=== PATIENT | female | born 1960 | race Caucasian/White ===

== ENCOUNTER 2018-07-02 08:01 | Emergency (ER) | payer MEDICAID ==
[~2018-07-02] VITALS: Ht 157.5 cm; Wt 95.7 kg
[2018-07-02 08:17] VITALS: BP 144/74
--- NOTE | 2018-07-02 08:23 | NUR ---
Patient ambulated to bed 9. RN evaluating patient at bedside.
--- NOTE | 2018-07-02 08:35 | NUR ---
PT. ARRIVED TO THE ED W/ c/o left knee pain x 5 days----worsening pain, ambulates with a slight limp denies recent injury. PT STATES " WHEN IT GETS COLD,IT STARTS HURTING A LOT AND IT HAS BEEN FOR THE PAST 5 DAYS". 8/10 DULL THROBBING PAIN ON LT KNEE THAT IS NON RADIATING". ER MD AWARE. SAFETY PRECAUTIONS IMPLEMENTED. WILL CONTINUE TO MONITOR.
--- NOTE | 2018-07-02 08:50 | NUR ---
Dr. Pack evaluating patient at bedside.
[2018-07-02] MEDS ORDERED: traMADol 50 MG TAB PO ONE (08:55)
[2018-07-02] MEDS ORDERED: KETOROLAC 60 MG/2 ML VIAL IM ONE (08:55)
[2018-07-02 10:05] VITALS: BP 140/72
--- NOTE | 2018-07-02 10:05 | NUR ---
Patient discharged with v/s stable. Written and verbal after care instructions given and explained. Patient alert, oriented and verbalized understanding of instructions. Ambulatory with steady gait. All questions addressed prior to discharge. ID band removed. Patient advised to follow up with PMD. Rx of voltaren xr 100mg given. Patient educated on indication of medication including possible reaction and side effects. Opportunity to ask questions provided and answered.
== END 2018-07-02 10:05 | disposition home or self-care (01) ==
LOC: MED 08:01
DX: M17.12 Unilateral primary osteoarthritis, left knee (principal); E11.9 Type 2 diabetes mellitus without complications; I10 Essential (primary) hypertension
CPT/HCPCS: 96372; 99283; J1885

== ENCOUNTER 2018-07-19 17:53 | Emergency (ER) | payer MEDICAID ==
[~2018-07-19] VITALS: Ht 162.6 cm; Wt 98.2 kg
[2018-07-19 18:07] VITALS: BP 109/70
--- NOTE | 2018-07-19 18:13 | NUR ---
PT AMBULATED TO ER BED 11
[2018-07-19 18:17] VITALS: BP 138/76
[2018-07-19] MEDS ORDERED: ASPIRIN 81 MG TAB.CHEW PO ONE (18:20)
--- NOTE | 2018-07-19 18:40 | NUR ---
43 YO F BIB SELF W/ C/ RIGHT LEG PAIN W/ "MESQUINO?", WART?. PT HAS A BLISTER ON THE RIGHT UPPER THIGH THAT APPEARS ERYTHEMOUS W/ EDEMA AND POSS PUS. PT REPORTS FEELING VERY HOT, DENIES FEVERS/N/V/D. DENIES A BURN OR INJUIRY. / LEG PAIN.
[2018-07-19 18:51] LABS: BASOPHILS % (AUTO) 0.1 % (0.0-2.0); EOSINOPHILS # (AUTO) 0.1 K/uL (0-0.4); EOSINOPHILS % (AUTO) 1.1 % (0.0-4.0); HEMATOCRIT 38.4 % (36-48); HEMOGLOBIN 12.5 g/dL (12.0-16.0); LYMPHOCYTES # (AUTO) 1.7 K/uL (2.5-16.5); LYMPHOCYTES % (AUTO) 14.3 % (20.5-51.1); MEAN CORPUSCULAR HEMOGLOBIN 30 pg (27-31); MEAN CORPUSCULAR HGB CONC 32 g/dL (33-37); MEAN CORPUSCULAR VOLUME 93.2 fL (80-94); MONOCYTES # (AUTO) 0.8 K/uL (0.8-1.0); MONOCYTES % (AUTO) 6.6 % (1.7-9.3); NEUTROPHILS # (AUTO) 9.3 K/uL (1.8-7.7); NEUTROPHILS % (AUTO) 77.9 % (42.2-75.2); PLATELET COUNT (AUTO) 407 K/uL (140-450); RED BLOOD CELL COUNT(AUTO) 4.13 MIL/uL (4.20-5.40); RED CELL DISTRIBUTION WIDTH 13.4 % (11.6-13.7)
[2018-07-19 19:04] LABS: ANION GAP 14.7 (8-16); CARBON DIOXIDE 28.4 mmol/L (21-32); CREATININE 0.7 mg/dL (0.6-1.3); POTASSIUM 4.1 mmol/L (3.5-5.1)
[2018-07-19 19:10] LABS: ALBUMIN 3.7 g/dL (3.4-5.0); TOTAL BILIRUBIN 0.5 mg/dL (0.0-1.0)
--- NOTE | 2018-07-19 19:11 | NUR ---
REPORT RECEIVED FROM RENEE FONTANEZ
[2018-07-19 19:18] LABS: PROTHROMBIN TIME 9.4 secs (10.8-13.4)
--- NOTE | 2018-07-19 19:23 | NUR ---
Dr. Orozco evaluating patient at bedside.
--- NOTE | 2018-07-19 19:30 | NUR ---
PT SITTING IN BED. C/O CELLULITIS ON RT THIGH. INFORMED PT THAT DR HATCH WILL BE IN TO SEE HER SHORTLY.
[2018-07-19] MEDS ORDERED: CLINDAMYCIN 600 MG in DEXTROSE 5% 50 ML IV ONE (19:55)
[2018-07-19] MEDS ORDERED: NACL 0.9% 1,000 ML IV ONE (19:55)
[2018-07-19] MEDS ORDERED: KETOROLAC 30 MG/ML VIAL IVP ONE (19:55)
[2018-07-19] MEDS ORDERED: LIDOCAINE/EPI 1% 1:100000 20 ML VIAL INJ ONE (20:00)
[2018-07-19] MEDS ORDERED: CLINDAMYCIN 600 MG/4 ML VIAL ONE (20:12)
--- NOTE | 2018-07-19 20:35 | NUR ---
I&D Procedure done by Dr Holden HATCH. SM amt of bleeding noted. DSD applied. Pt procedure. Wound care discussed w/ patient.
[2018-07-19] MEDS ORDERED: BACITRACIN OINT 500 UNITS/GM PKT TP ONE (20:50)
--- NOTE | 2018-07-19 21:25 | NUR ---
Patient discharged with v/s stable. Written and verbal after care instructions given and explained. Patient alert, oriented and verbalized understanding of instructions. Ambulatory with steady gait. All questions addressed prior to discharge. ID band removed. Patient advised to follow up with PMD. Rx of BACTRIM AND NAPROSYN given. Patient educated on indication of medication including possible reaction and side effects. Opportunity to ask questions provided and answered.
[2018-07-19 21:26] VITALS: BP 133/67
== END 2018-07-19 21:25 | disposition home or self-care (01) ==
LOC: MED 17:53
DX: L03.115 Cellulitis of right lower limb (principal); E11.9 Type 2 diabetes mellitus without complications; I10 Essential (primary) hypertension; Z90.49 Acquired absence of other specified parts of digestive tract; W57.XXXA Bitten or stung by nonvenomous insect and other nonvenomous arthropods, initial encounter; Y93.89 Activity, other specified; Y92.89 Other specified places as the place of occurrence of the external cause; Y99.8 Other external cause status
CPT/HCPCS: 10060; 36415; 80053; 83880; 84484; 85025; 85610; 85730; 90471; 90715; 96361; 96365; 96375; 99283; J1885; J2001; J3490; J7030; J7060

== ENCOUNTER 2018-10-08 00:59 | Emergency (ER) | payer MEDICAID ==
[~2018-10-08] VITALS: Ht 165.1 cm; Wt 117.9 kg
[2018-10-08 01:07] VITALS: BP 141/75
--- NOTE | 2018-10-08 01:07 | NUR ---
TO BED # 09 AMBULATORY, REPORT GIVEN TO GINA DURAN
[2018-10-08] MEDS ORDERED: IBUPROFEN 800 MG TAB PO ONE (01:10)
--- NOTE | 2018-10-08 01:12 | NUR ---
PT CAME INTO THE ER WITH C/O FEVER X 2 DAYS. PT TEMP WAS 101.5, IBUPROFIN GIVEN. A/O X 4, PT REPORTS NAUSEA AND VOMITED X 2. PT HAS GENERALIZED PAIN, ACHE, 7/10. LUNGS AT CLEAR TO AUSCULTATION, NO SOB, SAT 97%. PRODUCTIVE COUGH PRESENT. ER MD AT BEDSIDE. SAFETY PRECAUTIONS IN PLACE.
[2018-10-08] MEDS ORDERED: KETOROLAC 60 MG/2 ML VIAL IM ONE (01:20)
--- NOTE | 2018-10-08 02:39 | NUR ---
PATIENT COUGHING. VOMITED X1. PATIENT RESTING IN BED. WILL CONTINUE TO MONITOR.
--- NOTE | 2018-10-08 02:57 | NUR ---
PT VOMITED X 1, ER MD MADE AWARE, WAITING FOR ORDERS.
[2018-10-08] MEDS ORDERED: ONDANSETRON 4 MG/2 ML VIAL IM ONE (03:00)
[2018-10-08 03:36] VITALS: BP 125/77
--- NOTE | 2018-10-08 03:36 | NUR ---
Patient discharged with v/s stable. Written and verbal after care instructions given and explained. Patient alert, oriented and verbalized understanding of instructions. Ambulatory with steady gait. All questions addressed prior to discharge. ID band removed. Patient advised to follow up with PMD. Rx of PROMETHAZINE HYDROCHLORIDE/ DEXTROMETHORPHAN HYDROBROMIDE, MOTRIN given. Patient educated on indication of medication including possible reaction and side effects. Opportunity to ask questions provided and answered.
== END 2018-10-08 03:36 | disposition home or self-care (01) ==
LOC: MED 00:59
DX: J06.9 Acute upper respiratory infection, unspecified (principal); E11.9 Type 2 diabetes mellitus without complications; I10 Essential (primary) hypertension; M54.9 Dorsalgia, unspecified; M54.2 Cervicalgia
CPT/HCPCS: 87804; 96372; 99283; J1885; J2405

== ENCOUNTER 2018-10-08 21:26 | Emergency (ER) | payer MEDICAID ==
[~2018-10-08] VITALS: Ht 154.9 cm; Wt 98.9 kg
[2018-10-08 21:42] VITALS: BP 122/60
--- NOTE | 2018-10-08 21:45 | NUR ---
TO LOBBY A/W BED, AMB, THRAOT SWAB DONE AND SENT TO LAB ERMD NOTED
--- NOTE | 2018-10-08 22:10 | NUR ---
PT CAME IN WITH C/O FEVER. PT STATED THAT SHE WAS HERE THE NIGHT BEFORE AND GOT A RX BUT IT WAS NOT FILLED BY HER PERSONAL PHARMACY BECAUSE THEY WERE OUT OF STOCK.PT HAS A COUGH, LS CLEAR WITH DIMINISHED BASES BILATERAL, SATING 96%, COUGH PRESENT, TEMP OF 100.1 F. ER MD AWARE, PT WAITING TO BE EVALUATED. SAFETY PRECAUTIONS IN PLACE, WILL CONTINUE TO MONITOR.
[2018-10-09 00:05] VITALS: BP 124/64
[2018-10-09] MEDS ORDERED: KETOROLAC 60 MG/2 ML VIAL IM ONE (00:05)
--- NOTE | 2018-10-09 00:05 | NUR ---
Patient discharged with v/s stable. Written and verbal after care instructions given and explained. Patient alert, oriented and verbalized understanding of instructions. Ambulatory with steady gait. All questions addressed prior to discharge. ID band removed. Patient advised to follow up with PMD. Rx of NAPROSYN AND ROBITUSSIN DM given. Patient educated on indication of medication including possible reaction and side effects. Opportunity to ask questions provided and answered.
== END 2018-10-09 00:05 | disposition home or self-care (01) ==
LOC: MED 21:26
DX: J06.9 Acute upper respiratory infection, unspecified (principal); H57.13 Ocular pain, bilateral; E11.9 Type 2 diabetes mellitus without complications; I10 Essential (primary) hypertension
CPT/HCPCS: 87081; 99282; 99283

== ENCOUNTER 2019-03-06 21:06 | Emergency (ER) | payer MEDICAID ==
[~2019-03-06] VITALS: Ht 157.5 cm; Wt 97.1 kg
[2019-03-06 21:09] VITALS: BP 146/82
[2019-03-06] MEDS ORDERED: NACL 0.9% 1,000 ML IV ONE (22:45)
[2019-03-06] MEDS ORDERED: ASPIRIN 81 MG TAB.CHEW PO ONE (22:45)
[2019-03-06] MEDS ORDERED: ALUMINUM HYD/MAG/SIMETHICONE 30 ML UDC PO ONE (23:20)
[2019-03-06] MEDS ORDERED: PANTOPRAZOLE 40 MG INJ VIAL IVP ONE (23:20)
[2019-03-06] MEDS ORDERED: DICYCLOMINE HCL LIQUID 10 MG/5 ML UDC PO ONE (23:20)
[2019-03-06] MEDS ORDERED: LIDOCAINE VISCOUS 2% 20 ML UDC PO ONE (23:20)
[2019-03-06 23:48] LABS: BASOPHILS % (AUTO) 0.3 % (0.0-2.0); EOSINOPHILS # (AUTO) 0.2 K/uL (0-0.4); EOSINOPHILS % (AUTO) 2.3 % (0.0-4.0); HEMATOCRIT 39.4 % (36-48); HEMOGLOBIN 13.2 g/dL (12.0-16.0); LYMPHOCYTES # (AUTO) 3.3 K/uL (2.5-16.5); LYMPHOCYTES % (AUTO) 35.2 % (20.5-51.1); MEAN CORPUSCULAR HEMOGLOBIN 31 pg (27-31); MEAN CORPUSCULAR HGB CONC 34 g/dL (33-37); MEAN CORPUSCULAR VOLUME 93.3 fL (80-94); MONOCYTES # (AUTO) 0.7 K/uL (0.8-1.0); MONOCYTES % (AUTO) 7.8 % (1.7-9.3); NEUTROPHILS # (AUTO) 5.1 K/uL (1.8-7.7); NEUTROPHILS % (AUTO) 54.4 % (42.2-75.2); PLATELET COUNT (AUTO) 420 K/uL (140-450); RED BLOOD CELL COUNT(AUTO) 4.22 MIL/uL (4.20-5.40); RED CELL DISTRIBUTION WIDTH 13.2 % (11.6-13.7); WHITE BLOOD COUNT (AUTO) 9.4 K/uL (4.8-10.8)
[2019-03-07 00:01] LABS: ANION GAP 14.5 (8-16); CARBON DIOXIDE 27.2 mmol/L (21-32); CREATININE 0.8 mg/dL (0.6-1.3); POTASSIUM 3.7 mmol/L (3.5-5.1)
[2019-03-07 00:04] LABS: ALBUMIN 3.9 g/dL (3.4-5.0); TOTAL BILIRUBIN 0.4 mg/dL (0.0-1.0)
[2019-03-07 00:25] VITALS: BP 146/82
== END 2019-03-07 00:25 | disposition left against medical advice (07) ==
LOC: MED 21:06
DX: R07.89 Other chest pain (principal); R10.13 Epigastric pain; R42 Dizziness and giddiness; E11.9 Type 2 diabetes mellitus without complications; I10 Essential (primary) hypertension
CPT/HCPCS: 36415; 71045; 80053; 84484; 85025; 99284; Q0092

== ENCOUNTER 2019-09-11 09:50 | Emergency (ER) | payer MEDICAID ==
[~2019-09-11] VITALS: Ht 156.2 cm; Wt 97.5 kg
[2019-09-11 09:53] VITALS: BP 123/60
--- NOTE | 2019-09-11 10:00 | NUR ---
amb to bed 06
--- NOTE | 2019-09-11 10:10 | NUR ---
59 Y/O F C/C COUGH/SORE THROAT/GREEN PHLEGM X 2 WEEKS. PER PT HAS NOT TAKEN RX AT HOME. LUNG SOUNDS CLEAR. PT A/OX4. ALLERGIES POLLEN. HX DM. RX GLUCOPHAGE. NO N/V/D. SIDE RAIL X1.
--- NOTE | 2019-09-11 10:36 | NUR ---
PT RESTING IN BED, SIDE RAIL X1
[2019-09-11 10:38] LABS: BASOPHILS % (AUTO) 1.1 % (0.0-2.0); EOSINOPHILS # (AUTO) 0.3 K/uL (0-0.4); EOSINOPHILS % (AUTO) 6.2 % (0.0-4.0); HEMATOCRIT 38.4 % (36-48); HEMOGLOBIN 12.6 g/dL (12.0-16.0); LYMPHOCYTES # (AUTO) 0.8 K/uL (2.5-16.5); LYMPHOCYTES % (AUTO) 19.3 % (20.5-51.1); MEAN CORPUSCULAR HEMOGLOBIN 31 pg (27-31); MEAN CORPUSCULAR HGB CONC 33 g/dL (33-37); MONOCYTES # (AUTO) 0.4 K/uL (0.8-1.0); MONOCYTES % (AUTO) 10.9 % (1.7-9.3); NEUTROPHILS # (AUTO) 2.5 K/uL (1.8-7.7); NEUTROPHILS % (AUTO) 62.5 % (42.2-75.2); PLATELET COUNT (AUTO) 344 K/uL (140-450); RED BLOOD CELL COUNT(AUTO) 4.04 MIL/uL (4.20-5.40); RED CELL DISTRIBUTION WIDTH 14.2 % (11.6-13.7)
--- NOTE | 2019-09-11 10:43 | NUR ---
XRAY AT BEDSIDE
--- NOTE | 2019-09-11 10:50 | NUR ---
Dr. Matta is evaluating the patient at bedside.
[2019-09-11 11:09] LABS: ALBUMIN 3.5 g/dL (3.4-5.0); CARBON DIOXIDE 32.1 mmol/L (21-32); CREATININE 0.8 mg/dL (0.6-1.3); POTASSIUM 4.1 mmol/L (3.5-5.1); TOTAL BILIRUBIN 0.5 mg/dL (0.0-1.0)
--- NOTE | 2019-09-11 11:52 | NUR ---
PT RESTING IN BED, SIDE RAIL X1
[2019-09-11 12:07] VITALS: BP 120/62
--- NOTE | 2019-09-11 12:07 | NUR ---
Patient discharged with v/s stable. Written and verbal after care instructions given and explained. Patient alert, oriented and verbalized understanding of instructions. Ambulatory with steady gait. All questions addressed prior to discharge. ID band removed. Patient advised to follow up with PMD. Rx of ALBUTEROL,TESSALON,CODEINE given. Patient educated on indication of medication including possible reaction and side effects. Opportunity to ask questions provided and answered.
== END 2019-09-11 12:07 | disposition home or self-care (01) ==
LOC: MED 09:50
DX: R05 Cough (principal); R51 Headache; M54.2 Cervicalgia; I10 Essential (primary) hypertension
CPT/HCPCS: 36415; 71045; 80053; 85025; 99284; Q0092

== ENCOUNTER 2020-01-31 13:49 | Emergency (ER) | payer MEDICAID ==
[~2020-01-31] VITALS: Ht 157.5 cm; Wt 95.3 kg
[2020-01-31 13:54] VITALS: BP 141/83
--- NOTE | 2020-01-31 14:10 | NUR ---
Pt c/o rt foot pain x 2 wks, unable to state if trauma/injury occured, states "i want an xray" PATIENT'S RT DORSAL FOOT IS ERYTHEMATOUS, WARM AND TENDER TO TOUCH WITH FULL ROM. PT DENIES ANY FEVER, CP, SOB, OR COUGH AT THIS TIME; PATIENT STATES PAIN OF 10/10 AT THIS TIME; VSS; PATIENT POSITIONED FOR COMFORT; HOB ELEVATED; BEDRAILS UP X1; BED DOWN. ER MD MADE AWARE OF PT STATUS.
--- NOTE | 2020-01-31 14:26 | NUR ---
RAD AT BEDSIDE
--- NOTE | 2020-01-31 14:27 | NUR ---
ER-PA AT BEDSIDE
[2020-01-31] MEDS: IBUPROFEN 600 MG TAB PO ONE (14:32)
[2020-01-31 15:35] VITALS: BP 130/72
--- NOTE | 2020-01-31 15:36 | NUR ---
Patient discharged with v/s stable. Written and verbal after care instructions given and explained. Patient alert, oriented and verbalized understanding of instructions. Ambulatory with steady gait. All questions addressed prior to discharge. ID band removed. Patient advised to follow up with PMD. Rx of IBUPROFEN,NORCO given. Patient educated on indication of medication including possible reaction and side effects. Opportunity to ask questions provided and answered.
== END 2020-01-31 15:36 | disposition home or self-care (01) ==
LOC: MED 13:49
DX: S92.351A Displaced fracture of fifth metatarsal bone, right foot, initial encounter for closed fracture (principal); I10 Essential (primary) hypertension; W22.03XA Walked into furniture, initial encounter; Y93.89 Activity, other specified; Y92.098 Other place in other non-institutional residence as the place of occurrence of the external cause; Y99.8 Other external cause status
CPT/HCPCS: 29515; 73630; 99283; Q0092

== ENCOUNTER 2020-04-15 13:58 | Emergency (ER) | payer MEDICAID ==
[~2020-04-15] VITALS: Ht 157.5 cm; Wt 96.6 kg
[2020-04-15 14:02] VITALS: BP 131/68
--- NOTE | 2020-04-15 14:18 | NUR ---
PT C/O WORSENING CHEST TIGHTNESS, MID BACK PAIN, AND WHEEZINGS, MILD DRY COUGH FOR ONE MONTH. DENIES N/V/D. PT AOX4 , AFIBRILE , AMBULATORY WITH STEADY GAIT, PINK PALPEBRAL CONJUNCTIVA , ANICTERIC SCLERA , SCE , ROUND SOFT ABDOMEN. PMH: PRE-DIABETES, ASTHMA
--- NOTE | 2020-04-15 14:23 | NUR ---
DR SHABAZZ AT BEDSIDE EVALUATING PT.
[2020-04-15] MEDS ORDERED: ALBUTEROL HFA MDI 90 MCG/ACTUATION 8 GM INH ONE (14:30)
[2020-04-15] MEDS ORDERED: predniSONE 20 MG TAB PO ONE (14:30)
--- NOTE | 2020-04-15 14:34 | NUR ---
EMT AT BEDSIDE DOIN EKG
--- NOTE | 2020-04-15 14:35 | NUR ---
RT AT BEDSIDE.
--- NOTE | 2020-04-15 14:44 | NUR ---
COVID PCR DONE SENT TO LAB .
--- NOTE | 2020-04-15 14:58 | NUR ---
XRAY AT BEDSIDE.
[2020-04-15 15:12] LABS: BASOPHILS % (AUTO) 0.4 % (0.0-2.0); EOSINOPHILS # (AUTO) 0.2 K/uL (0-0.4); EOSINOPHILS % (AUTO) 3.2 % (0.0-4.0); HEMATOCRIT 35.5 % (36-48); HEMOGLOBIN 12.1 g/dL (12.0-16.0); LYMPHOCYTES # (AUTO) 1.6 K/uL (2.5-16.5); LYMPHOCYTES % (AUTO) 26.6 % (20.5-51.1); MEAN CORPUSCULAR HEMOGLOBIN 32 pg (27-31); MEAN CORPUSCULAR HGB CONC 34 g/dL (33-37); MEAN CORPUSCULAR VOLUME 93.6 fL (80-94); MONOCYTES # (AUTO) 0.5 K/uL (0.8-1.0); MONOCYTES % (AUTO) 7.8 % (1.7-9.3); NEUTROPHILS # (AUTO) 3.7 K/uL (1.8-7.7); PLATELET COUNT (AUTO) 386 K/uL (140-450); RED CELL DISTRIBUTION WIDTH 13.7 % (11.6-13.7)
[2020-04-15 15:34] LABS: ALBUMIN 3.4 g/dL (3.4-5.0); ANION GAP 11.7 (8-16); CARBON DIOXIDE 29.1 mmol/L (21-32); CREATININE 0.8 mg/dL (0.6-1.3); POTASSIUM 3.8 mmol/L (3.5-5.1); TOTAL BILIRUBIN 0.3 mg/dL (0.0-1.0)
[2020-04-15] MEDS ORDERED: IBUPROFEN 600 MG TAB PO ONE (15:50)
--- NOTE | 2020-04-15 16:06 | NUR ---
dr norman at bedside reevaluating pt.
[2020-04-15 16:47] VITALS: BP 145/50
--- NOTE | 2020-04-15 16:48 | NUR ---
DISCHARGE WITHOUT DISCHARGE NOTES , PATIENT WALK OUT DR SHABAZZ AND RENEE ABREU INFORMED AND AWARE.
--- NOTE | 2020-04-17 08:39 | NUR ---
Received negative covid results from lab.
== END 2020-04-15 16:48 | disposition home or self-care (01) ==
LOC: MED 13:58
DX: J20.9 Acute bronchitis, unspecified (principal); R73.03 Prediabetes; I10 Essential (primary) hypertension; J45.909 Unspecified asthma, uncomplicated; Z20.828 Contact with and (suspected) exposure to other viral communicable diseases
CPT/HCPCS: 71045; 80053; 84484; 85025; 93005; 94664; 99285; J7512; Q0092; U0003

== ENCOUNTER 2021-02-09 08:24 | Emergency (ER) | payer MEDICAID, SELFPAY ==
[~2021-02-09] VITALS: Ht 165.1 cm; Wt 104.3 kg
[2021-02-09 08:46] VITALS: BP 200/97
[2021-02-09] MEDS ORDERED: BENZONATATE 100 MG CAPLF PO SCH (09:20)
[2021-02-09] MEDS ORDERED: PROCHLORPERAZINE 10 MG/2 ML VIAL IM ONE (09:20)
[2021-02-09] MEDS ORDERED: KETOROLAC 60 MG/2 ML VIAL IM ONE ×2 (09:20→10:33)
[2021-02-09] MEDS ORDERED: CLONIDINE HYDROCHLORIDE 0.1 MG TAB PO ONE (09:20)
--- NOTE | 2021-02-09 09:25 | NUR ---
COVID SWAB DONE.
[2021-02-09 10:32] LABS: BASOPHILS % (AUTO) 0.2 % (0.0-2.0); EOSINOPHILS # (AUTO) 0.4 K/uL (0-0.4); HEMATOCRIT 40.4 % (36-48); HEMOGLOBIN 13.4 g/dL (12.0-16.0); LYMPHOCYTES # (AUTO) 1.1 K/uL (2.5-16.5); LYMPHOCYTES % (AUTO) 14.2 % (20.5-51.1); MEAN CORPUSCULAR HEMOGLOBIN 32 pg (27-31); MEAN CORPUSCULAR HGB CONC 33 g/dL (33-37); MEAN CORPUSCULAR VOLUME 95.4 fL (80-94); MONOCYTES # (AUTO) 0.6 K/uL (0.8-1.0); MONOCYTES % (AUTO) 7.5 % (1.7-9.3); NEUTROPHILS # (AUTO) 5.9 K/uL (1.8-7.7); NEUTROPHILS % (AUTO) 73.1 % (42.2-75.2); PLATELET COUNT (AUTO) 419 K/uL (140-450); RED BLOOD CELL COUNT(AUTO) 4.23 MIL/uL (4.20-5.40); RED CELL DISTRIBUTION WIDTH 13.4 % (11.6-13.7)
[2021-02-09] MEDS ORDERED: PROCHLORPERAZINE 5 MG TAB ONE (10:32)
[2021-02-09] MEDS ORDERED: CLONIDINE HYDROCHLORIDE 0.1 MG TAB ONE (10:34)
[2021-02-09] MEDS ORDERED: PROCHLORPERAZINE 10 MG/2 ML VIAL ONE (10:38)
[2021-02-09 10:42] LABS: ANION GAP 7.9 (8-16); CARBON DIOXIDE 30.4 mmol/L (21-32); CREATININE 0.7 mg/dL (0.6-1.3); POTASSIUM 4.3 mmol/L (3.5-5.1)
[2021-02-09] MEDS ORDERED: PRED20TA6 PO (11:51)
[2021-02-09] MEDS ORDERED: AZIT250T4 PO (11:51)
[2021-02-09] MEDS ORDERED: NAPR-54 PO (11:51)
--- NOTE | 2021-02-09 14:23 | NUR ---
NOVEL WAS SWABBED AND SENT TO LAB
--- NOTE | 2021-02-09 14:36 | NUR ---
Patient discharged with v/s stable. Written and verbal after care instructions given and explained. Patient alert, oriented and verbalized understanding of instructions. Ambulatory with steady gait. All questions addressed prior to discharge. ID band removed. Patient advised to follow up with PMD. Rx of AZITHROMYCIN, NAPROXEN, PREDNISONE given. Patient educated on indication of medication including possible reaction and side effects. Opportunity to ask questions provided and answered.
[2021-02-09 14:37] VITALS: BP 151/91
== END 2021-02-09 14:36 | disposition home or self-care (01) ==
LOC: MED 08:24
DX: S00.93XA Contusion of unspecified part of head, initial encounter (principal); J20.9 Acute bronchitis, unspecified; I10 Essential (primary) hypertension; E11.9 Type 2 diabetes mellitus without complications; J45.909 Unspecified asthma, uncomplicated; Z20.822 Contact with and (suspected) exposure to COVID-19; X58.XXXA Exposure to other specified factors, initial encounter; Y93.89 Activity, other specified; Y92.89 Other specified places as the place of occurrence of the external cause; Y99.8 Other external cause status
CPT/HCPCS: 71045; 80048; 85025; 87426; 96372; 99284; J0780; J1885; Q0163; U0003; Q0164

== ENCOUNTER 2021-09-24 09:41 | Inpatient (IN) | payer MEDICAID, SELFPAY ==
[~2021-09-24] VITALS: Ht 157.5 cm; Wt 96.6 kg
[~2021-09-24 09:41] MED LIST: AZIT250T4 PO; NAPR-54 PO; PRED20TA6 PO
[2021-09-24 09:52] VITALS: BP 156/80
--- NOTE | 2021-09-24 09:57 | NUR ---
PT AMBULATED TO ER BED 9 WITH A STEADY GAIT.
--- NOTE | 2021-09-24 10:07 | NUR ---
61 y/o female c/o rectal bleeding x2 weeks. Patient states "blood is bright red and only appears after a bowel movement." Patient has a 8/10 pain level. Patient states "her pain is all throught out my intestine." Patient had hemorrhoidectomy 5 years ago but states "they left a small hemmoroid." Patient is complaining of weakness also. Medical History: HEMORRHOIDS, PRE-DM NKDA
--- NOTE | 2021-09-24 10:17 | NUR ---
Dr. Fields at bedside evaluating patient.
--- NOTE | 2021-09-24 10:21 | NUR ---
PT TAKEN TO CT VIA RCHALINO.
--- NOTE | 2021-09-24 10:38 | NUR ---
PT TAKEN TO ER BED 9 VIA [facility]ALINO.
[2021-09-24 10:48] LABS: BASOPHILS % (AUTO) 0.7 % (0.0-2.0); EOSINOPHILS # (AUTO) 0.3 K/uL (0-0.4); HEMATOCRIT 35.7 % (36-48); HEMOGLOBIN 11.9 g/dL (12.0-16.0); LYMPHOCYTES # (AUTO) 1.3 K/uL (2.5-16.5); LYMPHOCYTES % (AUTO) 23.9 % (20.5-51.1); MEAN CORPUSCULAR HEMOGLOBIN 31 pg (27-31); MEAN CORPUSCULAR HGB CONC 33 g/dL (33-37); MONOCYTES # (AUTO) 0.5 K/uL (0.8-1.0); MONOCYTES % (AUTO) 8.4 % (1.7-9.3); NEUTROPHILS # (AUTO) 3.4 K/uL (1.8-7.7); PLATELET COUNT (AUTO) 381 K/uL (140-450); RED CELL DISTRIBUTION WIDTH 13.5 % (11.6-13.7); WHITE BLOOD COUNT (AUTO) 5.6 K/uL (4.8-10.8)
[2021-09-24 10:55] LABS: ALBUMIN 3.3 g/dL (3.4-5.0); ANION GAP 11.9 (8-16); CARBON DIOXIDE 29.2 mmol/L (21-32); CREATININE 0.7 mg/dL (0.6-1.3); POTASSIUM 4.1 mmol/L (3.5-5.1); TOTAL BILIRUBIN 0.6 mg/dL (0.0-1.0)
[2021-09-24] MEDS ORDERED: PANTOPRAZOLE 40 MG INJ VIAL IVP ONE (12:15)
[2021-09-24] MEDS ORDERED: DEXT 5% / NACL 0.9% 500 ML IV ONE (12:15)
--- NOTE | 2021-09-24 12:15 | NUR ---
Dr. Fields re-evaluating patient at bedside.
--- NOTE | 2021-09-24 12:22 | NUR ---
NEVIN duran obtained and walked to lab.
[2021-09-24] MEDS ORDERED: MAGNESIUM OXIDE 400 MG TAB PO PRN (14:50)
[2021-09-24] MEDS ORDERED: POTASSIUM CHLORIDE 10 MEQ TABER PO PRN (14:50)
[2021-09-24] MEDS ORDERED: HYDROcodone/APAP 5/325 MG 1 TAB TAB PO PRN (14:50)
[2021-09-24] MEDS ORDERED: ACETAMINOPHEN 325 MG TAB PO PRN (14:50)
[2021-09-24] MEDS ORDERED: MAG SULF 2000 MG/WATER PREMIX 50 ML IV PRN (14:50)
[2021-09-24] MEDS ORDERED: ONDANSETRON 4 MG/2 ML VIAL IVP PRN (14:50)
[2021-09-24] MEDS ORDERED: KCL 20 MEQ/WATER INJ PREMIX 200 ML IV PRN (14:50)
[2021-09-24] MEDS ORDERED: MORPHINE SULFATE 2 MG/ML SYR IVP PRN (14:55)
[2021-09-24] MEDS: NACL 0.9% 1,000 ML IV SCH (15:29)
[2021-09-24] MEDS ORDERED: ALBUTEROL SULFATE/IPRATROPIU 3 ML SOL IH PRN (15:30)
--- NOTE | 2021-09-24 15:40 | NUR ---
Dr Llamas at bedside evaluating patient
--- NOTE | 2021-09-24 16:02 | NUR ---
Patient will be admitted to care of DR. LINO. Admited to TELE. Will go to room 112A. Belongings list completed. Report to RENEE US.
[2021-09-24 16:10] VITALS: BP 131/77
--- NOTE | 2021-09-24 16:10 | NUR ---
RECEIVED PT FROM ED. PT ALERT, AWAKE, ABLE TO AMBULATE. BREATHING SYMMETRICAL ON ROOM AIR. NO C/O PAIN AT THIS TIME. WITH RFA 22G RUNNING NS AT 80CC/HR. ABDOMEN SOFT, NON DISTENDED. REMINDED PT NOT TO EAT OR DRINK EXCEPT FOR MEDICATIONS. CALL LIGHT WITHIN REACH. ALL SAFETY MEASURES IN PLACE.
[2021-09-24] MEDS ORDERED: SENNA 8.6 MG TAB PO SCH (17:35)
--- NOTE | 2021-09-24 19:30 | NUR ---
ENDORSED PT TO CUTTING TOOL SHARPENER NURSE. PT IN STABLE CONDITION
[2021-09-24 20:00] VITALS: BP 157/81
[2021-09-24] MEDS: SUPREP BOWEL PREP KIT 354 ML SOLN.RECON PO SCH (20:14)
[2021-09-25] VITALS: BP 157/83
[2021-09-25] MEDS: NACL 0.9% 1,000 ML IV SCH ×2 (02:39→15:35)
[2021-09-25 04:00] VITALS: BP 154/92
[2021-09-25] MEDS: SUPREP BOWEL PREP KIT 354 ML SOLN.RECON PO SCH (05:44)
[2021-09-25] MEDS ORDERED: LACTULOSE 20 GM/30 ML UDC PO SCH (06:00)
[2021-09-25 06:47] LABS: BASOPHILS % (AUTO) 0.2 % (0.0-2.0); EOSINOPHILS # (AUTO) 0.4 K/uL (0-0.4); HEMATOCRIT 39.3 % (36-48); HEMOGLOBIN 13.4 g/dL (12.0-16.0); LYMPHOCYTES # (AUTO) 1.7 K/uL (2.5-16.5); LYMPHOCYTES % (AUTO) 32.1 % (20.5-51.1); MEAN CORPUSCULAR HEMOGLOBIN 32 pg (27-31); MEAN CORPUSCULAR HGB CONC 34 g/dL (33-37); MONOCYTES # (AUTO) 0.5 K/uL (0.8-1.0); MONOCYTES % (AUTO) 8.7 % (1.7-9.3); NEUTROPHILS # (AUTO) 2.8 K/uL (1.8-7.7); PLATELET COUNT (AUTO) 470 K/uL (140-450); RED BLOOD CELL COUNT(AUTO) 4.18 MIL/uL (4.20-5.40); RED CELL DISTRIBUTION WIDTH 13.8 % (11.6-13.7); WHITE BLOOD COUNT (AUTO) 5.4 K/uL (4.8-10.8)
[2021-09-25] MEDS ORDERED: BOWEL EVACUANT DRINK 4,000 ML PDS PO SCH (07:00)
[2021-09-25 07:16] LABS: ALBUMIN 3.8 g/dL (3.4-5.0); CARBON DIOXIDE 29.8 mmol/L (21-32); CREATININE 0.6 mg/dL (0.6-1.3); MAGNESIUM 2.1 mg/dL (1.8-2.4); POTASSIUM 3.8 mmol/L (3.5-5.1)
--- NOTE | 2021-09-25 07:23 | NUR ---
RECEIVED REPORT FROM PULLEY MAN NURSE FOR CONTINUITY OF CARE. PATIENT ON TOILET ALERT ORIENTED. IV ON HER RIGHT FOREARM RUNNING AT 80CC/HOUR. STILL DRINKING HER BOWEL PREP. ALL SAFETY MEASURE IN PLACE.
[2021-09-25 07:27] LABS: PROTHROMBIN TIME 9.9 secs (10.8-13.4)
--- NOTE | 2021-09-25 08:59 | NUR ---
DR. VELAZQUEZ AT BED SIDE.
[2021-09-25] MEDS ORDERED: PANTOPRAZOLE 40 MG INJ VIAL IVP SCH (09:00)
--- NOTE | 2021-09-25 09:10 | NUR ---
RN GAVE IVP PROTONIX TOLERATED WELL. PATIENT ON STABLE CONDITION.
[2021-09-25 10:59] VITALS: BP 152/88
--- NOTE | 2021-09-25 11:35 | NUR ---
PATIENT COMPLAINING OF NON PRODUCTIVE COUGH AND REQUESTING FOR MEDICATION. INFORM DR. VELAZQUEZ AND HE ORDER TO GIVE TESSALON TID PRN FOR COUGH ORDER NOTED AND CARRIED OUT.
[2021-09-25] MEDS ORDERED: BENZONATATE 100 MG CAPLF PO PRN (11:40)
[2021-09-25] MEDS ORDERED: fentaNYL citrate 0.05 MG/ML VIAL ONE (13:56)
[2021-09-25] MEDS ORDERED: MIDAZOLAM 5 MG/5 ML VIAL ONE (13:57)
--- NOTE | 2021-09-25 15:05 | NUR ---
PATIENT ALERT ORIENTED ABLE TO MAKE NEEDS KNOW. COMPLAIN OF RIGHT UPPER ABDOMEN BUT REFUSED TO HAVE PAIN MEDICATION. OR NURSES CAME IN AND WHEELED PATIENT TO OR FOR HER COLONOSCOPY.
--- NOTE | 2021-09-25 15:16 | NUR ---
PATIENT HAS BEEN SCREENED AND CATEGORIZED MODERATE NUTRITION RISK. PATIENT WILL BE SEEN WITHIN 3-5 DAYS OF ADMISSION. / J[address]
--- NOTE | 2021-09-25 15:53 | NUR ---
DC PLANNING: THE PATIENT ADMITTED WITH C/O BLOOD PER RECTUM X 2 DAYS AND LEFT SIDED ABDOMINAL PAIN WITH NAUSEA. H/O ASTHMA, PRE-DIABETES AND HTN. CT ABDOMEN/PELVIS NEGATIVE FOR ACUTE FINDINGS RELATED TO C/O, ORDERS FOR GI CONSULT. H&H ON ADMISSION 11.9 AND 35.7, ON CLEAR LIQID DIET, NPO AFTER MIDNIGHT. PLAN FOR COLONOSCOPY TODAY, ON PROTONIX 40 MG IV BID, AND IVF'S, MORPHINE IV PRN PAIN. DC PLAN IS FOR THE PATIENT TO RETURN HOME WHEN CLINICALLY STABLE. CM WILL FOLLOW.
[2021-09-25] MEDS ORDERED: MIDAZOLAM 2 MG/2 ML VIAL IVP ONE (16:10)
[2021-09-25] MEDS ORDERED: fentaNYL citrate 0.05 MG/ML VIAL IVP ONE (16:10)
[2021-09-25] MEDS ORDERED: CALC625T27 PO (16:24)
--- NOTE | 2021-09-25 16:27 | NUR ---
PATIENT WHEELED BY OR NURSES FROM COLONOSCOPY ABLE TO RESPONDS VERBALLY. DENIES PAIN OR ANY DISCOMFORT. PATIENT HAD COLONOSCOPY AND UGD WITH BIOPSY FOR HPYLORI. PATIENT HAD DIVERTICULITIS AND HIATAL HERNIA. AND PER DR. JIMENEZ PATIENT CAN GO HOME TO DAY.
[2021-09-25 16:55] VITALS: BP 133/79
[2021-09-25 17:43] VITALS: BP 116/63
--- NOTE | 2021-09-25 18:45 | NUR ---
PATIENT DISCHARGED HOME , HL REMOVED , FAMILY MEMBERS WERE WITH PATIENT, UPON DISCHARGE NO DISCOMFORT, NURSE ESCORTED VIA WHEELCHAIR. THE DISCHARGE PACKET WITH INSTRUCTION IS GIVEN. TOOK THE BELONGING. WHEELED PATIENT [id number]
[2021-09-26] MEDS ORDERED: PSYLLIUM 12.2 GM/PKT PO SCH (09:00)
== END 2021-09-25 18:45 | disposition home or self-care (01) | DRG 244 ==
LOC: MED 09:41 → MTU 14:50
PROVIDERS: ADMIT Internal Medicine; ATTEND Internal Medicine
PROC: 0DJD8ZZ Inspection of Lower Intestinal Tract, Via Natural or Artificial Opening Endoscopic (ICD-10-PCS; principal; 2021-09-25 16:45)
PROC: 0DJ08ZZ Inspection of Upper Intestinal Tract, Via Natural or Artificial Opening Endoscopic (ICD-10-PCS; 2021-09-25 16:45)
DX: K57.31 Diverticulosis of large intestine without perforation or abscess with bleeding (principal); E44.1 Mild protein-calorie malnutrition; D62 Acute posthemorrhagic anemia; J45.909 Unspecified asthma, uncomplicated; K43.9 Ventral hernia without obstruction or gangrene; Z20.822 Contact with and (suspected) exposure to COVID-19; I10 Essential (primary) hypertension; E66.9 Obesity, unspecified; K44.9 Diaphragmatic hernia without obstruction or gangrene; K59.09 Other constipation; Z68.39 Body mass index [BMI] 39.0-39.9, adult; Z90.49 Acquired absence of other specified parts of digestive tract
CPT/HCPCS: 36415; 80053; 82272; 83735; 85025; 85610; 85730; 86677; 86886; 86900; 86901; 87081; 96361; 96374; 99285; C9113; J2250; J3010; J7030; J7060

== ENCOUNTER 2021-10-09 11:54 | Emergency (ER) | payer MEDICAID, OTHER ==
[~2021-10-09] VITALS: Ht 157.5 cm; Wt 95.3 kg
[~2021-10-09 11:54] MED LIST changes: -AZIT250T4 PO; +CALC625T27 PO; -NAPR-54 PO; -PRED20TA6 PO
[2021-10-09 11:57] VITALS: BP 134/43
--- NOTE | 2021-10-09 13:07 | NUR ---
PT AMBULATED TO ER BED 2
--- NOTE | 2021-10-09 13:37 | NUR ---
61 YEARS OLD FEMALE PRESENTS TO ER C/O BLOOD IN STOOL X2 WITH RECTAL PAIN STATED RECENTLY HAD ENDOSCOPY/COLONOSCOPY AND WAS INFORMED TO COME TO ER FOR FURTHER EVALUATION.
[2021-10-09 14:26] LABS: BASOPHILS # (AUTO) 0.1 K/uL (0.00-0.22); BASOPHILS % (AUTO) 1.4 % (0.0-2.0); EOSINOPHILS # (AUTO) 0.2 K/uL (0-0.4); EOSINOPHILS % (AUTO) 3.2 % (0.0-4.0); HEMATOCRIT 37.5 % (36-48); HEMOGLOBIN 12.5 g/dL (12.0-16.0); LYMPHOCYTES # (AUTO) 1.1 K/uL (2.5-16.5); LYMPHOCYTES % (AUTO) 16.1 % (20.5-51.1); MEAN CORPUSCULAR HEMOGLOBIN 31 pg (27-31); MEAN CORPUSCULAR HGB CONC 34 g/dL (33-37); MEAN CORPUSCULAR VOLUME 92.9 fL (80-94); MONOCYTES # (AUTO) 0.5 K/uL (0.8-1.0); MONOCYTES % (AUTO) 7.1 % (1.7-9.3); NEUTROPHILS % (AUTO) 72.2 % (42.2-75.2); PLATELET COUNT (AUTO) 393 K/uL (140-450); RED BLOOD CELL COUNT(AUTO) 4.03 MIL/uL (4.20-5.40); WHITE BLOOD COUNT (AUTO) 6.9 K/uL (4.8-10.8)
[2021-10-09 14:44] LABS: PROTHROMBIN TIME 9.7 secs (10.8-13.4)
[2021-10-09 14:48] LABS: ALBUMIN 3.5 g/dL (3.4-5.0); ANION GAP 12.8 (8-16); CARBON DIOXIDE 28.3 mmol/L (21-32); CREATININE 0.7 mg/dL (0.6-1.3); POTASSIUM 4.1 mmol/L (3.5-5.1); TOTAL BILIRUBIN 0.6 mg/dL (0.0-1.0)
[2021-10-09 15:24] VITALS: BP 140/80
[2021-10-09 15:29] LABS: PROTHROMBIN TIME 9.6 secs (10.8-13.4)
--- NOTE | 2021-10-09 15:29 | NUR ---
Patient discharged with v/s stable. Written and verbal after care instructions given and explained to parent/guardian. Parent/Guardian verbalized understanding. Ambulatorysteady gait. All questions addressed prior to discharge. Advised to follow up with PMD. NO ACTIVE BLEEDING NO PAIN VSS.
[2021-10-09 15:39] LABS: BILIRUBIN,URINE NEGATIVE (NEGATIVE); BLOOD, URINE TRACE-I (NEGATIVE); LEUKOCYTE ESTERASE ,URINE 1+ (NEGATIVE); NITRITE, URINE NEGATIVE (NEGATIVE); PH,URINE 5.5 (5.0-9.0); UGLUCOSE NEGATIVE (NEGATIVE)
[2021-10-09 15:41] LABS: APPEARANCE,URINE HAZY (CLEAR); COLOR,URINE AMBER (YELLOW)
[2021-10-09 15:49] LABS: RBC,URINE 0-5 /HPF (0-5)
== END 2021-10-09 15:29 | disposition home or self-care (01) ==
LOC: MED 11:54
DX: K92.2 Gastrointestinal hemorrhage, unspecified (principal); K59.00 Constipation, unspecified; Z87.19 Personal history of other diseases of the digestive system; E11.9 Type 2 diabetes mellitus without complications; I10 Essential (primary) hypertension
CPT/HCPCS: 36415; 80053; 81001; 85025; 85610; 85730; 86886; 86900; 86901; 87086; 99283

== ENCOUNTER 2023-02-26 23:20 | Emergency (ER) | payer MEDICAID ==
[~2023-02-26] VITALS: Ht 154.9 cm; Wt 96.2 kg
[2023-02-26 23:27] VITALS: BP 143/78; PULSE 72; RESP 16; TEMP 96.9; O2SAT 99
[2023-02-27] MEDS ORDERED: HYDROcodone/APAP 5/325 MG 1 TAB TAB PO ONE (00:55)
[2023-02-27] MEDS ORDERED: KETOROLAC 30 MG/ML VIAL IM ONE (00:55)
[2023-02-27] MEDS ORDERED: NAPR-54 PO (03:50)
[2023-02-27 04:10] VITALS: BP 143/78; PULSE 72; RESP 16; TEMP 96.9; O2SAT 99
== END 2023-02-27 04:10 | disposition home or self-care (01) ==
LOC: MED 23:20
DX: S96.812A Strain of other specified muscles and tendons at ankle and foot level, left foot, initial encounter (principal); I83.812 Varicose veins of left lower extremity with pain; I10 Essential (primary) hypertension; Z79.899 Other long term (current) drug therapy; X58.XXXA Exposure to other specified factors, initial encounter; Y93.89 Activity, other specified; Y92.89 Other specified places as the place of occurrence of the external cause; Y99.8 Other external cause status
CPT/HCPCS: 93971; 96372; 99285; J1885; Q0092

== ENCOUNTER 2023-04-16 17:16 | Emergency (ER) | payer MEDICAID ==
[~2023-04-16] VITALS: Ht 157.5 cm; Wt 96.6 kg
[~2023-04-16 17:16] MED LIST changes: +NAPR-54 PO
[2023-04-16 17:55] VITALS: BP 149/76; PULSE 74; RESP 16; TEMP 96.9; O2SAT 98
[2023-04-16] MEDS ORDERED: KETOROLAC 30 MG/ML VIAL IM ONE (18:50)
[2023-04-16] MEDS ORDERED: FLUORESCEIN OPTH STRIP 1 MG OP ONE (18:50)
[2023-04-16] MEDS ORDERED: IBUP-1842 PO (20:07)
[2023-04-16 21:14] VITALS: BP 149/76; PULSE 74; RESP 16; TEMP 96.9; O2SAT 98
== END 2023-04-16 21:14 | disposition home or self-care (01) ==
LOC: MED 17:16
DX: S00.11XA Contusion of right eyelid and periocular area, initial encounter (principal); R42 Dizziness and giddiness; I10 Essential (primary) hypertension; Z79.899 Other long term (current) drug therapy; Z79.1 Long term (current) use of non-steroidal anti-inflammatories (NSAID); W01.198A Fall on same level from slipping, tripping and stumbling with subsequent striking against other object, initial encounter; Y92.89 Other specified places as the place of occurrence of the external cause; Y93.89 Activity, other specified; Y99.8 Other external cause status
CPT/HCPCS: 70480; 96372; 99285

== ENCOUNTER 2023-08-15 09:49 | Emergency (ER) | payer MEDICAID ==
[~2023-08-15] VITALS: Ht 154.9 cm; Wt 94.8 kg
[~2023-08-15 09:49] MED LIST changes: +IBUP-1842 PO
[2023-08-15 09:55] VITALS: BP 125/71; PULSE 67; RESP 19; TEMP 96.9; O2SAT 99
[2023-08-15 10:22] VITALS: O2SAT 99
[2023-08-15] MEDS ORDERED: DEXT 5% / NACL 0.45% 1,000 ML IV ONE (11:35)
[2023-08-15 11:46] LABS: BASOPHILS % (AUTO) 0.2 % (0.0-2.0); EOSINOPHILS # (AUTO) 0.2 K/uL (0-0.4); EOSINOPHILS % (AUTO) 4.3 % (0.0-4.0); HEMATOCRIT 38.3 % (36-48); LYMPHOCYTES # (AUTO) 1.6 K/uL (2.5-16.5); LYMPHOCYTES % (AUTO) 29.1 % (20.5-51.1); MEAN CORPUSCULAR HEMOGLOBIN 32 pg (27-31); MEAN CORPUSCULAR HGB CONC 34 g/dL (33-37); MEAN CORPUSCULAR VOLUME 93.6 fL (80-94); MONOCYTES # (AUTO) 0.5 K/uL (0.8-1.0); MONOCYTES % (AUTO) 8.2 % (1.7-9.3); NEUTROPHILS # (AUTO) 3.3 K/uL (1.8-7.7); NEUTROPHILS % (AUTO) 58.2 % (42.2-75.2); PLATELET COUNT (AUTO) 370 K/uL (140-450); RED BLOOD CELL COUNT(AUTO) 4.09 MIL/uL (4.20-5.40); RED CELL DISTRIBUTION WIDTH 13.6 % (11.6-13.7); WHITE BLOOD COUNT (AUTO) 5.6 K/uL (4.8-10.8)
[2023-08-15 12:02] LABS: ALBUMIN 3.2 g/dL (3.4-5.0); BILIRUBIN,DIRECT 0.1 mg/dL (0.0-0.3); TOTAL BILIRUBIN 0.3 mg/dL (0.0-1.0); TOTAL PROTEIN, SERUM 8.1 g/dL (6.4-8.2)
[2023-08-15 12:03] LABS: ANION GAP 10.7 (8-16); CALCIUM 9.3 mg/dL (8.5-10.1); CARBON DIOXIDE 32.5 mmol/L (21-32); CREATININE 0.9 mg/dL (0.6-1.3); POTASSIUM 4.2 mmol/L (3.5-5.1)
[2023-08-15] MEDS ORDERED: HYDR25SU91 RC (12:14)
== END 2023-08-15 12:24 | disposition home or self-care (01) ==
LOC: MED 09:49
DX: K62.89 Other specified diseases of anus and rectum (principal); R10.9 Unspecified abdominal pain; K57.90 Diverticulosis of intestine, part unspecified, without perforation or abscess without bleeding; Z79.899 Other long term (current) drug therapy
CPT/HCPCS: 36415; 80048; 80076; 81025; 85025; 99284